=== PATIENT | female | born 1970 | race Caucasian/White ===

== ENCOUNTER → 2017-09-12 | Outpatient (CLI) | payer MEDICAID ==
[~2017-09-12] MED LIST: ACETAMINOPHEN &1 TA1 PO; AMBIEN 10MG TAB10 MG PO; AMITRIPTYLINE 550 MG PO; AMITRIPTYLINE10 MG; AMOXICOT500 MG PO; APAP/BUTALBITAL1 TA1 PO; ATENOLOL50 M1 PO; BACTROBAN2% TP; BENADRYL 50MG C50 MG PO; BENADRYL25 M1 PO; BUTALB/APAP/CAF1 TA2 PO; BYSTOLIC5 MG PO; CIPRO 500MG TA500 MG PO; CYCLOBENZAPRINE10 MG PO; CYMBALTA30 M1 PO; CYMBALTA30 MG PO; CYMBALTA60 MG PO; FERROUS SULFAT325 M2 PO; FIORICET 325 MG1 TAB PO; FIORICET WITH C PO; FLAGYL 250MG.250 MG PO; FLEXERIL10 MG PO; GABAPENTIN300 MG PO; HYDROCODONE/ACE1 TA5 PO; IBUPROFEN400 MG PO; KEFLEX 500MG.500 MG PO; LEVAQUIN500 MG PO; LORTAB 5/500 501 TAB PO; MACROBID 100MG100 MG PO; MEDROL 4MG. DOSE4 MG PO; MOTRIN 400MG.400 MG PO; NADOLOL 20 MG T20 MG PO; NEURONTIN 300M300 MG PO; NORCO 325 MG-51 TAB PO; PERCOCET 325 MG1 TA3 PO; PERCOCET 5/3251 EACH PO; PYRIDIUM 200MG200 MG PO; TRAMADOL 50MG T50 M1 PO; TRAMADOL 50MG T50 MG PO; TRAMADOL50 M1 PO; ULTRAM50 MG PO; ZIAC 5 MG-6.251 TAB PO; ZOFRAN ODT4 MG PO
[2017-09-12 13:00] VITALS: BP 150/88
[2017-09-12 13:30] VITALS: BP 122/70
[2017-09-12 14:30] VITALS: BP 145/85
== END ==
LOC: COP 13:00
DX: D50.9 Iron deficiency anemia, unspecified (principal)
CPT/HCPCS: Q0138